=== PATIENT | female | born 1945 | race Caucasian/White ===

== ENCOUNTER 2017-03-02 00:29 | Emergency (ER) | payer MEDICARE, BC ==
[2017-03-02 00:39] VITALS: BP 134/48
[2017-03-02] MEDS ORDERED: Hyoscyamine 0.125 MG Tab.SL SL ONE (00:47)
[2017-03-02] MEDS ORDERED: Alum Hydrox/Mag Hydrox/Simeth 30 ML, Lidocaine 2% 15 ML PO ONE ×2 (00:47)
[2017-03-02] MEDS ORDERED: Aspirin 81 MG Tab.Chew PO ONE (00:47)
--- NOTE | 2017-03-02 00:52 | EDM.PDOC ---
ED HPI GENERAL MEDICAL PROBLEM - General Chief Complaint: Chest Pain Stated Complaint: CHEST PAIN/epigastric pain Time Seen by Provider: 03/02/17 00:36 Source of Information: Reports: Patient, Family (daughter) History Limitations: Reports: No Limitations - History of Present Illness INITIAL COMMENTS - FREE TEXT/NARRATIVE: 71-year-old female presents the ED with her daughter. She reports that she slept for about 2 hours but awoke around 10:45 last evening with severe pain in the epigastrium that radiates along the costal margin bilaterally. Does not seem to radiate into her back. No relief with Tums or burping or belching. She does have a history of gastroesophageal reflux disease and often gets acid reflux up into her throat. She's been well controlled since she is on pantoprazole. Took some water that did not seem to help help either. No true odynophagia. History of severe coronary disease having had triple bypass and 2 stents placed in the past. Last stents were placed in 2008. She remains on Plavix. She did not take any nitroglycerin tabs as she couldn't find them at home. She's never required it. She's had previous cholecystectomy and total bowel hysterectomy with retention of one of her ovaries. Onset: Sudden Onset Date: 03/01/17 Onset Time: 22:45 Duration: Hour(s):, Constant Location: Reports: Chest (Lower retrosternal chest and epigastrium.) Quality: Reports: Ache, Burning, Pressure, Stabbing Severity: Moderate Improves with: Reports: None (Rates pain as 7 out of 10.) Worsens with: Reports: None Context: Denies: Activity, Exercise, Lifting, Sick Contact, Trauma, Other Associated Symptoms: Reports: Chest Pain, Nausea/Vomiting. Denies: No Other Symptoms, Confusion (Epigastric lower retrosternal chest pain), Cough, cough w sputum, Diaphoresis, Fever/Chills, Headaches, Loss of Appetite, Malaise, Rash, Seizure, Shortness of Breath, Syncope, Weakness (Mild nausea with no vomiting), Other Treatments MEDICAL TRANSCRIPTION EDITOR: Reports: Aspirin (She took 2 baby aspirins at home.) Chest Pain Score (Numeric/FACES): 7 - Related Data Allergies Allergy/AdvReac Type Severity Reaction Status Date / Time adhesive Allergy Rash Verified 03/02/17 00:40 tizanidine HCl Allergy Cannot Verified 03/02/17 00:40 [From Zanaflex] Remember aspirin AdvReac Cough Verified 03/02/17 00:40 Home Meds: Home Meds Albuterol [Proventil HFA] 2 puff INH BID PRN 08/01/15 [History] Calcium Carb/Magnesium Oxid/D3 [Calcium Magnesium + D] 1 tab PO DAILY 08/01/15 [ History] Clopidogrel [Plavix] 75 mg PO DAILY 08/01/15 [History] FLUoxetine [PROzac] 40 mg PO DAILY 08/01/15 [History] Fluticasone Propionate [Flonase] 1 spray NASBOTH DAILY 08/01/15 [History] Formoterol/Mometasone [Dulera 100 MCG/5 MCG] 1 puff IH DAILY 08/01/15 [History] Furosemide [Lasix] 40 mg PO DAILY 08/01/15 [History] Gabapentin [Neurontin] 100 mg PO TID 08/01/15 [History] Levothyroxine Sodium [Synthroid] 25 mcg PO DAILY 08/01/15 [History] Multivitamin [Daily Multiple Vitamin] 1 tab PO DAILY 08/01/15 [History] Nitroglycerin [Nitrostat] 0.4 mg SL Q5M PRN 08/01/15 [History] Restful Legs 4 tab SL DAILY 08/01/15 [History] Rosuvastatin [Crestor] 40 mg PO BEDTIME 08/01/15 [History] Atenolol [Tenormin] 12.5 mg PO DAILY 03/02/17 [History] Pantoprazole Sodium [Protonix] 40 mg PO BID 03/02/17 [History] Solifenacin Succinate [Vesicare] 10 mg PO DAILY 03/02/17 [History] Past Medical History Other HEENT History: glasses, sinusitis Cardiovascular History: Reports: Bypass (Triple coronary bypass in 2005.), CAD, Heart Failure, High Cholesterol, Hypertension, ME (Mild congestive failure), Stents (Has [address] last placement was in 2008.) Other Cardiovascular History: diaphoresis, diastolic dysfunction, popliteal artery thrombosis and stent 2009, R leg lymphedema Respiratory History: Reports: Asthma, Bronchitis, Recurrent, COPD Gastrointestinal History: Reports: Gastritis, GERD Other Gastrointestinal History: stomach ulcers, laparotomy Genitourinary History: Reports: UTI, Recurrent, Other (See Below) Other Genitourinary History: urinary incontinence--urge component Other OB/BYN History: fibrocystic breast disease, breast lumpectomy Musculoskeletal History: Reports: Osteoarthritis, Osteoporosis Other Musculoskeletal History: osteoarthritis R knee Neurological History: Reports: Vertigo Psychiatric History: Reports: Depression Endocrine/Metabolic History: Reports: Hypothyroidism, Obesity/BMI 30+ Oncologic (Cancer) History: Reports: Basal Cell Carcinoma Other Dermatologic History: spot on forearm recently biopsied - Past Surgical History Cardiovascular Surgical History: Reports: Coronary Artery Bypass, Coronary Artery Stent Musculoskeletal Surgical History: Reports: Joint Replacement Social & Family History - Tobacco Use Smoking Status *Q: Never Smoker Second Hand Smoke Exposure: No - Alcohol Use Days Per Week of Alcohol Use: 1 (occasionally 2 times month) - Recreational Drug Use Recreational Drug Use: No Drug Use in Last 12 Months: No - Living Situation & Occupation Living situation: Reports: , Alone Occupation: Retired ED ROS GENERAL - Review of Systems Review Of Systems: See Below Constitutional: Reports: No Symptoms HEENT: Reports: Glasses Respiratory: Reports: Shortness of Breath. Denies: Wheezing, Pleuritic Chest Pain (On exertion), Cough, Sputum, Hemoptysis Cardiovascular: Reports: Chest Pain (See history of present illness), Blood Pressure Problem, Dyspnea on Exertion (Sometimes.), Lightheadedness. Denies: Claudication, Orthopnea (Controlled with medication) Endocrine: Reports: Fatigue GI/Abdominal: Reports: Abdominal Pain, Constipation (Occasional problems with constipation) : Reports: Frequency (Urge and stress component), Incontinence Musculoskeletal: Reports: Back Pain, Other (Chronic lower extremity pain and neuropathy.) Skin: Reports: No Symptoms Neurological: Reports: Paresthesia (Left leg) Psychiatric: Reports: No Symptoms Hematologic/Lymphatic: Reports: No Symptoms Immunologic: Reports: No Symptoms ED EXAM, GENERAL - Physical Exam Exam: See Below Exam Limited By: No Limitations General Appearance: Alert, WD/WN, No Apparent Distress Eye Exam: Bilateral Eye: Normal Inspection Throat/Mouth: Normal Inspection, Normal Lips, Normal Teeth, Normal Oropharynx Head: Atraumatic, Normocephalic Neck: Normal Inspection, Supple, Non-Tender, Full Range of Motion. No: Lymphadenopathy (L), Lymphadenopathy (R) Respiratory/Chest: No Respiratory Distress, Lungs Clear, Normal Breath Sounds, No Accessory Muscle Use, Respiratory Distress (Mild tachypnea at rest.) Cardiovascular: Regular Rate, Rhythm, No Edema, No Gallop, No Murmur, No Rub. No: Normal Peripheral Pulses Peripheral Pulses: 1+: Posterior Tibial (L), Posterior Tibial (R), Dorsalis Pedis (L), Dorsalis Pedis (R) GI/Abdominal: Normal Bowel Sounds, Soft, Non-Tender, No Organomegaly, Other ( She has a palpable lipoma just below the costal margin on the left side there is 3 cm in length and 2 cm in width. It is mobile and I can pick it up.) Extremities: Normal Inspection, Normal Range of Motion, Non-Tender, No Pedal Edema Neurological: Alert, Oriented, CN II-XII Intact, Normal Cognition, Normal Gait, Normal Reflexes, No Motor/Sensory Deficits Psychiatric: Normal Affect, Normal Mood Skin Exam: Warm, Dry, Intact, Normal Color, No Rash EKG INTERPRETATION EKG Date: 03/02/17 Time: 12:35 Rhythm: NSR Rate (Beats/Min): 76 [place]: Normal P-Wave: Present QRS: Other (Incomplete left bundle branch block left ventricular hypertrophy pattern) ST-T: Other (T-wave inversion in leads 1 and aVL cannot rule out ischemia in the lateral wall.) QT: Prolonged (Mildly prolonged.) Course - Vital Signs Last Recorded V/S: Last Vital Signs Temp 36.1 C 03/02/17 00:33 Pulse 72 03/02/17 00:33 Resp 20 03/02/17 00:33 BP 134/48 L 03/02/17 00:33 Pulse Ox 100 03/02/17 00:33 - Orders/Labs/Meds Orders: Active Orders 24 hr Category Date Time Status EKG Documentation Completion [RC] STAT Care 03/02/17 00:49 Active EKG Documentation Completion [RC] STAT Care 03/02/17 02:25 Active Abdomen 1V Flat [CR] Stat Exams 03/02/17 00:50 Taken Chest 1V Frontal [CR] Stat Exams 03/02/17 00:48 Taken CBC W/O DIFF,HEMOGRAM [HEME] MOTH@0700 Lab 03/04/17 07:00 Ordered CBC W/O DIFF,HEMOGRAM [HEME] MOTH@0700 Lab 03/07/17 07:00 Ordered CBC W/O DIFF,HEMOGRAM [HEME] MOTH@0700 Lab 03/11/17 07:00 Ordered CBC W/O DIFF,HEMOGRAM [HEME] MOTH@0700 Lab 03/14/17 07:00 Ordered CBC W/O DIFF,HEMOGRAM [HEME] MOTH@0700 Lab 03/18/17 07:00 Ordered CBC W/O DIFF,HEMOGRAM [HEME] MOTH@0700 Lab 03/21/17 07:00 Ordered Nitroglycerin/D5W [Nitroglycerin 25 MG/D5W 250 ML] Med 03/02/17 01:45 Active 25 mg in 250 ml IV TITRATE Sodium Chloride 0.9% [Normal Saline] 1,000 ml Med 03/02/17 01:00 Active IV ASDIRECTED Medication Orders Sodium Chloride (Normal Saline) 1,000 mls @ 100 mls/hr IV ASDIRECTED XAVIER Last Admin: 03/02/17 00:57 Dose: 100 mls/hr Nitroglycerin/Dextrose (Nitroglycerin 25 Mg/D5w 250 Ml) 25 mg in 250 mls @ 6 mls/hr IV TITRATE XAVIER PRN Reason: 10 MCG/MIN Last Admin: 03/02/17 01:48 Dose: 10 mcg/min, 6 mls/hr Labs: Laboratory Tests 03/02/17 03/02/17 03/02/17 Range/Units 00:41 00:41 00:41 WBC 9.34 (3.98-10.04) K/mm3 RBC 4.54 (3.98-5.22) M/mm3 Hgb 13.2 (11.2-15.7) gm/L Hct 39.7 (34.1-44.9) % MCV 87.4 (79.4-94.8) fl MCH 29.1 (25.6-32.2) pg MCHC 33.2 (32.2-35.5) g/dl RDW Std Deviation 43.3 (36.4-46.3) fL Plt Count 343 (182-369) K/mm3 MPV 10.3 (9.4-12.3) fl Neutrophils % (Manual) 76 H (40-60) % Band Neutrophils % 0 (0-10) % Lymphocytes % (Manual) 15 L (20-40) % Atypical Lymphs % 1 % Monocytes % (Manual) 3 (2-10) % Eosinophils % (Manual) 5 (0.7-5.8) % Basophils % (Manual) 0 L (0.1-1.2) Toxic Granulation 1+ slight Platelet Estimate Adequate Plt Morphology Comment Normal Poikilocytosis 1+ slight Anisocytosis 1+ slight Microcytosis 1+ slight Macrocytosis 1+ slight Ovalocytes 1+ slight RBC Morph Comment Abnormal PT 10.1 (8.0-13.0) SECONDS INR 0.93 D-Dimer, Quantitative (0.19-0.59) mg/L Sodium 141 (136-145) mEq/L Potassium 4.7 (3.5-5.1) mEq/L Chloride 103 (98-107) mEq/L Carbon Dioxide 31 (21-32) mEq/L Anion Gap 11.7 (5-15) BUN 25 H (7-18) mg/dL Creatinine 1.2 H (0.55-1.02) mg/dL Est Cr Clr Drug Dosing 33.02 mL/min Estimated GFR (MDRD) 44 (>60) mL/min BUN/Creatinine Ratio 20.8 H (14-18) Glucose 108 (83-115) mg/dL Calcium 9.0 (8.5-10.1) mg/dL Total Bilirubin 0.5 (0.2-1.0) mg/dL AST 85 H (15-37) U/L ALT 47 (14-59) U/L Alkaline Phosphatase 103 (46-116) U/L CK-MB (CK-2) 0.6 (0-3.6) ng/ml Troponin I 0.155 H* (0.00-0.056) ng/mL C-Reactive Protein 0.8 (<1.0) mg/dL B-Natriuretic Peptide (0-100) pg/mL Total Protein 7.8 (6.4-8.2) g/dl Albumin 3.9 (3.4-5.0) g/dl Globulin 3.9 gm/dL Albumin/Globulin Ratio 1.0 (1-2) Amylase 56 (20-160) U/L 03/02/17 03/02/17 03/02/17 Range/Units 00:41 01:59 02:23 WBC (3.98-10.04) K/mm3 RBC (3.98-5.22) M/mm3 Hgb (11.2-15.7) gm/L Hct (34.1-44.9) % MCV (79.4-94.8) fl MCH (25.6-32.2) pg MCHC (32.2-35.5) g/dl RDW Std Deviation (36.4-46.3) fL Plt Count (182-369) K/mm3 MPV (9.4-12.3) fl Neutrophils % (Manual) (40-60) % Band Neutrophils % (0-10) % Lymphocytes % (Manual) (20-40) % Atypical Lymphs % % Monocytes % (Manual) (2-10) % Eosinophils % (Manual) (0.7-5.8) % Basophils % (Manual) (0.1-1.2) Toxic Granulation Platelet Estimate Plt Morphology Comment Poikilocytosis Anisocytosis Microcytosis Macrocytosis Ovalocytes RBC Morph Comment PT (8.0-13.0) SECONDS INR D-Dimer, Quantitative 1.28 H (0.19-0.59) mg/L Sodium (136-145) mEq/L Potassium (3.5-5.1) mEq/L Chloride (98-107) mEq/L Carbon Dioxide (21-32) mEq/L Anion Gap (5-15) BUN (7-18) mg/dL Creatinine (0.55-1.02) mg/dL Est Cr Clr Drug Dosing mL/min Estimated GFR (MDRD) (>60) mL/min BUN/Creatinine Ratio (14-18) Glucose (83-115) mg/dL Calcium (8.5-10.1) mg/dL Total Bilirubin (0.2-1.0) mg/dL AST (15-37) U/L ALT (14-59) U/L Alkaline Phosphatase (46-116) U/L CK-MB (CK-2) 0.5 (0-3.6) ng/ml Troponin I 0.158 H* (0.00-0.056) ng/mL C-Reactive Protein (<1.0) mg/dL B-Natriuretic Peptide 183 H (0-100) pg/mL Total Protein (6.4-8.2) g/dl Albumin (3.4-5.0) g/dl Globulin gm/dL Albumin/Globulin Ratio (1-2) Amylase (20-160) U/L Meds: Medications Generic Name Dose Route Start Last Admin Trade Name Freq PRN Reason Stop Dose Admin Sodium Chloride 1,000 mls @ 100 mls/hr 03/02/17 01:00 03/02/17 00:57 Normal Saline IV 100 mls/hr ASDIRECTED XAVIER Administration Nitroglycerin/Dextrose 25 mg in 250 mls @ 6 mls/hr 03/02/17 01:45 03/02/17 01 :48 Nitroglycerin 25 Mg/D5w 250 Ml IV 10 mcg/min TITRATE XAVIER 6 mls/hr 10 MCG/MIN Administration Discontinued Medications Generic Name Dose Route Start Last Admin Trade Name Freq PRN Reason Stop Dose Admin Aspirin 162 mg 03/02/17 00:47 03/02/17 00:55 Aspirin PO 03/02/17 00:48 162 mg ONETIME ONE Administration Al Hydroxide/Mg Hydroxide 30 0 ml 03/02/17 00:47 03/02/17 00:52 ml/ Lidocaine HCl 15 ml PO 03/02/17 00:48 45 ml ONETIME ONE Administration Enoxaparin Sodium 95 mg 03/02/17 01:46 03/02/17 01:54 Lovenox SUBCUT 03/02/17 01:47 95 mg ONETIME ONE Administration Hydromorphone HCl 0.5 mg 03/02/17 02:18 03/02/17 02:30 Dilaudid IVPUSH 03/02/17 02:19 0.5 mg ONETIME ONE Administration Hydromorphone HCl Confirm 03/02/17 02:25 03/02/17 02:33 Dilaudid Administered 03/02/17 02:26 Not Given Dose 0.5 mg .ROUTE .STK-MED ONE Hyoscyamine 0.125 mg 03/02/17 00:47 03/02/17 00:51 Hyomax-Sl SL 03/02/17 00:48 0.125 mg ONETIME ONE Administration Ondansetron HCl 4 mg 03/02/17 02:18 03/02/17 02:27 Zofran IVPUSH 03/02/17 02:19 4 mg ONETIME ONE Administration - Radiology Interpretation Free Text/Narrative:: 31-year-old female attends the ED after waking from sleep with severe epigastric pressure discomfort at about 10:45 last night. She therefore arise 2 hours since pain started. She has a strong history of coronary disease with triple bypass and 2 stents placed. She has stable disease as far as we can ascertain with regular checkups with cardiology and yearly stress test which she has passed. She remains on Plavix and aspirin daily. Eating on examination over seems to be epigastric or GI in origin. She has taken 2 aspirins at home and I will give her 2 further aspirins here chewed. I will give her Levsin 0.125 mg sublingual and a GI cocktail and see how she does. Routine labs including cardiac markers will be drawn as well as an amylase. She's had previous cholecystectomy. I suspect she has a hiatal hernia that is causing her current pain as the pain radiates along the costal margin bilaterally. - Re-Assessments/Exams Free Text/Narrative Re-Assessment/Exam: 03/02/17 01:25: Chest x-ray reveals no abnormalities cardiac silhouette is quite small. Is a air in the left upper: Pushing up on the left hemidiaphragm which may be causing some of her epigastric pain. No definitive hiatal hernia is evident. She reports marked improvement in the pain after the Levsin sublingual and the GI cocktail. 03/02/17 01:38 Lab called over and the serum troponin is elevated at 0.155. Right own of any other labs to correlate with this. However this is of concern that current pain that she was experiencing in the pit of her stomach was in fact cardiac related. She will be started on low dose nitroglycerin at 5 mcg/m as her blood pressure is 114/46. Currently she reports that she still has minor discomfort in the pit of her stomach. Grades it as a 1 out of 10 or barely there. 03/02/17 01:47 labs reveal a normal white count at 9.34 hemoglobin 13.2 hematocrit of 39.7 platelets 343,000. Coags are normal. Sodium 141 potassium 4.7. Cord 103 bicarbonate 31. I.e. she is a CO2 retainer. Anion gap is 11.7. D1 is 25. Creatinine 1.2 with an EGFR 44. AST mildly elevated 85 ELT is mildly elevated at 47 BNP is 183 CK-MB fraction is 0.6 serum troponin is 0.155 . I will proceed with giving her Lovenox 95 mg subcutaneous abdominal wall. Note she is on Plavix and aspirin. 03/02/17 02:04 pain is coming back in the epigastrium and right upper anterior chest. Blood pressure has now come up to 137/30. Nitro drip will be increased to 10 mcg/min. I will make arrangements to send her to [facility] where she has received cardiac care in the past. Currently she'll be labeled as a non-STEMI. 03/02/17 02:43 I spoke with on-call first breaker feeder Dr.Alban Rhodes and hospitalist Dr Gant. They have accepted care at [facility] in [place] where she has received all of her cardiac care in the past. He be transported to that institution per ground ambulance. The second ECG done when she complained of more chest pain is unchanged from the first. I will have the lab draw a second set of enzymes --CK-MB and troponin. Coincidentally her d- dimer did come back elevated at 1.28 suggestive of clotting and increased fibrinogen breakdown product. Chest pain is much improved after receiving Dilaudid 0.5 mg IV she also received Zofran 4 mg IV.. At the time of discharge her pain was 1 out of 10. 03/02/17 03:10 Second set of cardiac markers are essentially unchanged from the first. CK-MB fraction 0.5 and troponin was 0.158. Departure - Departure Time of Disposition: 02:45 Disposition: DC/Tfer to Acute Hospital 02 Reason for Transfer *Q: Other Condition: Fair Clinical Impression: Acute coronary syndrome, Elevated troponin I level Referrals: Delaney Galvez DO [Primary Care Provider] - Forms: ED Department Discharge Additional Instructions: Patient transferred to [facility] in [place] for cardiology consultation and management due to elevated troponin at 0.155 after complaining of retrosternal epigastric chest pain for 2 hours. - My Orders Last 24 Hours: My Active Orders 03/02/17 00:48 Chest 1V Frontal [CR] Stat 03/02/17 00:49 EKG Documentation Completion [RC] STAT 03/02/17 00:50 Abdomen 1V Flat [CR] Stat 03/02/17 01:00 Sodium Chloride 0.9% [Normal Saline] 1,000 ml IV ASDIRECTED 03/02/17 01:45 Nitroglycerin/D5W [Nitroglycerin 25 MG/D5W 250 ML] 25 mg in 250 ml IV TITRATE 03/02/17 02:25 EKG Documentation Completion [RC] STAT 03/04/17 07:00 CBC W/O DIFF,HEMOGRAM [HEME] MOTH@69903/07/17 07:00 CBC W/O DIFF,HEMOGRAM [HEME] MOTH@69903/11/17 07:00 CBC W/O DIFF,HEMOGRAM [HEME] MOTH@69903/14/17 07:00 CBC W/O DIFF,HEMOGRAM [HEME] MOTH@69903/18/17 07:00 CBC W/O DIFF,HEMOGRAM [HEME] MOTH@69903/21/17 07:00 CBC W/O DIFF,HEMOGRAM [HEME] MOTH@699 - Assessment/Plan Last 24 Hours: My Active Orders 03/02/17 00:48 Chest 1V Frontal [CR] Stat 03/02/17 00:49 EKG Documentation Completion [RC] STAT 03/02/17 00:50 Abdomen 1V Flat [CR] Stat 03/02/17 01:00 Sodium Chloride 0.9% [Normal Saline] 1,000 ml IV ASDIRECTED 03/02/17 01:45 Nitroglycerin/D5W [Nitroglycerin 25 MG/D5W 250 ML] 25 mg in 250 ml IV TITRATE 03/02/17 02:25 EKG Documentation Completion [RC] STAT 03/04/17 07:00 CBC W/O DIFF,HEMOGRAM [HEME] MOTH@69903/07/17 07:00 CBC W/O DIFF,HEMOGRAM [HEME] MOTH@69903/11/17 07:00 CBC W/O DIFF,HEMOGRAM [HEME] MOTH@69903/14/17 07:00 CBC W/O DIFF,HEMOGRAM [HEME] MOTH@69903/18/17 07:00 CBC W/O DIFF,HEMOGRAM [HEME] MOTH@69903/21/17 07:00 CBC W/O DIFF,HEMOGRAM [HEME] MOTH@699
[2017-03-02] MEDS ORDERED: Sodium Chloride 0.9% 1,000 ML IV SCH (01:00)
[2017-03-02] MEDS ORDERED: Nitroglycerin/D5W 25 MG/250 ML BOTTLE IV SCH (01:45)
[2017-03-02] MEDS ORDERED: Enoxaparin 100 MG/1 ML Syringe SUBCUT ONE (01:46)
[2017-03-02] MEDS ORDERED: Ondansetron 4 MG/2 ML SDV IVPUSH ONE (02:18)
[2017-03-02] MEDS ORDERED: HYDROmorphone 0.5 MG/0.5 ML Syringe IVPUSH ONE (02:18)
[2017-03-02] MEDS ORDERED: HYDROmorphone 0.5 MG/0.5 ML Syringe ONE (02:25)
--- NOTE | 2017-03-03 11:22 | CR ---
Abdomen: Supine view of the abdomen was obtained. Comparison: Previous abdominal x-ray dated 03/22/12. Mild degenerative change is noted within the spine. Previous lower lumbar spine surgery is seen. Surgical clips are noted from prior cholecystectomy. Bowel gas pattern appears normal. Single surgical clips are noted within the left side of the pelvis. Impression: 1. Incidental findings as noted above. Nothing acute is appreciated on supine abdominal x-ray. Diagnostic code #2
--- NOTE | 2017-03-03 11:22 | CR ---
Chest: Frontal view of the chest was obtained. Comparison: Previous chest x-ray of 03/25/13. Heart size is normal. Mild tortuosity of the thoracic aorta is seen. Lungs are clear with no acute infiltrates. Bony structures are grossly intact. Impression: 1. Previous CABG. 2. Nothing acute is identified on frontal chest x-ray. Diagnostic code #2
== END 2017-03-02 02:46 ==
LOC: JD.ED 00:29
DX: I24.9 Acute ischemic heart disease, unspecified (principal); R79.89 Other specified abnormal findings of blood chemistry; I25.10 Atherosclerotic heart disease of native coronary artery without angina pectoris; I25.2 Old myocardial infarction; E78.00 Pure hypercholesterolemia, unspecified; I50.9 Heart failure, unspecified; I11.0 Hypertensive heart disease with heart failure; J45.909 Unspecified asthma, uncomplicated; J44.9 Chronic obstructive pulmonary disease, unspecified; K21.9 Gastro-esophageal reflux disease without esophagitis; F32.9 Major depressive disorder, single episode, unspecified; E03.9 Hypothyroidism, unspecified; E66.9 Obesity, unspecified; Z91.048 Other nonmedicinal substance allergy status; Z88.8 Allergy status to other drugs, medicaments and biological substances; Z79.899 Other long term (current) drug therapy; Z95.1 Presence of aortocoronary bypass graft; Z87.440 Personal history of urinary (tract) infections
CPT/HCPCS: 36415; 71010; 74000; 80053; 82150; 82553; 83880; 84484; 85025; 85379; 85610; 86140; 93005; 96361; 96365; 96372; 96375; 99285; A9270; J1170; J1650; J2405; J7040

== ENCOUNTER 2019-06-27 14:11 | Emergency (ER) | payer MEDICARE, BC ==
--- NOTE | 2019-06-27 14:21 | EDM.PDOC ---
ED HPI GENERAL MEDICAL PROBLEM - General Chief Complaint: Respiratory Problem Stated Complaint: COUGH Time Seen by Provider: 06/27/19 14:19 - History of Present Illness INITIAL COMMENTS - FREE TEXT/NARRATIVE: 73-year-old female presents emergency room with a cough. This cough is been going on for several days she's been exposed to some grandchildren with bronchitis that been started on antibiotics. The patient has a history of asthma but what bothers her the most that she spends a lot of time with her son who has end-stage liver disease and is immunocompromised and is worried about spreading illness the. The patient is using her rescue inhaler a little more frequently but is otherwise doing okay she complains of no shortness of breath she's had a few chills no fevers. Her cough is for the most part nonproductive but in the morning she brings up a little bit of off-colored sputum. - Related Data Allergies Allergy/AdvReac Type Severity Reaction Status Date / Time adhesive Allergy Rash Verified 06/27/19 14:18 aspirin AdvReac Cough Verified 06/27/19 14:18 ezetimibe AdvReac Shaking Verified 06/27/19 14:18 tizanidine HCl AdvReac Other Verified 06/27/19 14:18 [From Zajohnny] Home Meds: Home Meds Albuterol [Proventil HFA] 2 puff INH BID PRN 08/01/15 [History] Calcium Carb/Magnesium Oxid/D3 [Calcium Magnesium + D] 1 tab PO DAILY 08/01/15 [ History] Clopidogrel [Plavix] 75 mg PO DAILY 08/01/15 [History] FLUoxetine [PROzac] 40 mg PO DAILY 08/01/15 [History] Fluticasone Propionate [Flonase] 2 spray NASBOTH DAILY 08/01/15 [History] Furosemide [Lasix] 40 mg PO DAILY 08/01/15 [History] Levothyroxine Sodium [Synthroid] 25 mcg PO DAILY 08/01/15 [History] Nitroglycerin [Nitrostat] 0.4 mg SL Q5M PRN 08/01/15 [History] Rosuvastatin [Crestor] 40 mg PO BEDTIME 08/01/15 [History] Atenolol [Tenormin] 12.5 mg PO DAILY 03/02/17 [History] Pantoprazole Sodium [Protonix] 40 mg PO DAILY 03/02/17 [History] Solifenacin Succinate [Vesicare] 10 mg PO DAILY 03/02/17 [History] Acetaminophen [Tylenol] 650 mg PO Q4H PRN 05/27/18 [History] Cholecalciferol (Vitamin D3) [Vitamin D3] 5,000 unit PO DAILY 05/27/18 [History] L.acidoph,Paracasei, B.lactis [Probiotic] 1 each PO DAILY 05/27/18 [History] Mometasone/Formoterol [Dulera 200-5 MCG] 2 puff INH BID 05/27/18 [History] raNITIdine HCl [Zantac] 150 mg PO DAILY 05/27/18 [History] Albuterol Sulfate [Albuterol Sulfate Hfa] 8.5 gm IH ASDIRECTED #1 hfa.aer.ad 05/07 [Rx] Doxycycline Hyclate 100 mg PO Q12H #14 tablet 06/27/19 [Rx] predniSONE [Prednisone] 40 mg PO Q24H #10 tablet 06/27/19 [Rx] Past Medical History Other HEENT History: glasses, sinusitis Cardiovascular History: Reports: Bypass (Triple coronary bypass in 2005.), CAD, Heart Failure, High Cholesterol, Hypertension, [place] (Mild congestive failure), Stents (Has [address] last placement was in 2008.) Other Cardiovascular History: diaphoresis, diastolic dysfunction, popliteal artery thrombosis and stent 2009, R leg lymphedema Respiratory History: Reports: Asthma, Bronchitis, Recurrent, COPD Gastrointestinal History: Reports: Gastritis, GERD Other Gastrointestinal History: stomach ulcers, laparotomy Genitourinary History: Reports: UTI, Recurrent, Other (See Below) Other Genitourinary History: urinary incontinence--urge component 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 History: fibrocystic breast disease, breast lumpectomy Musculoskeletal History: Reports: Osteoarthritis, Osteoporosis Other Musculoskeletal History: osteoarthritis R knee Neurological History: Reports: Vertigo Psychiatric History: Reports: Depression Endocrine/Metabolic History: Reports: Hypothyroidism, Obesity/BMI 30+ Oncologic (Cancer) History: Reports: Basal Cell Carcinoma Other Dermatologic History: spot on forearm recently biopsied - Infectious Disease History Infectious Disease History: Reports: Chicken Pox, Measles, Mumps, Rubella - Past Surgical History Cardiovascular Surgical History: Reports: Coronary Artery Bypass, Coronary Artery Stent Musculoskeletal Surgical History: Reports: Joint Replacement Social & Family History - Family History Family Medical History: Noncontributory - Caffeine Use Caffeine Use: Reports: Coffee Other Caffeine Use: 3-4 cups a day - Living Situation & Occupation Living situation: Reports: , Alone Occupation: Retired ED ROS GENERAL - Review of Systems Review Of Systems: See Below Constitutional: Reports: Chills. Denies: Fever, Night Sweats, Diaphoresis HEENT: Reports: No Symptoms Respiratory: Reports: Cough. Denies: No Symptoms, Shortness of Breath, Wheezing , Pleuritic Chest Pain, Hemoptysis Cardiovascular: Reports: No Symptoms GI/Abdominal: Reports: No Symptoms : Reports: No Symptoms Neurological: Reports: No Symptoms ED EXAM, GENERAL - Physical Exam Exam: See Below Exam Limited By: No Limitations General Appearance: Alert, No Apparent Distress Eye Exam: Bilateral Eye: Normal Inspection Ears: Normal External Exam, Normal Canal, Hearing Grossly Normal, Normal TMs Nose: Normal Inspection, Normal Mucosa, No Blood Throat/Mouth: Normal Inspection, Normal Lips, Normal Teeth, Normal Gums, Normal Oropharynx, Normal Voice, No Airway Compromise Head: Atraumatic, Normocephalic Neck: Normal Inspection, Supple, Non-Tender, Full Range of Motion. No: Lymphadenopathy (L), Lymphadenopathy (R) Respiratory/Chest: No Respiratory Distress, Lungs Clear, Normal Breath Sounds Cardiovascular: Regular Rate, Rhythm, No Edema, Other (He has a 1 to 2/6 systolic murmur heard best along the left lower sternal border. This is not new she says she's had it for a long time) GI/Abdominal: Normal Bowel Sounds, Soft, Non-Tender Back Exam: Normal Inspection. No: CVA Tenderness (L), CVA Tenderness (R) Extremities: Normal Inspection, Non-Tender, No Pedal Edema Course - Vital Signs Last Recorded V/S: Last Vital Signs Temp 36.4 C 06/27/19 14:18 Pulse 83 06/27/19 14:18 Resp 18 06/27/19 14:18 BP 107/74 06/27/19 14:18 Pulse Ox 100 06/27/19 14:18 - Orders/Labs/Meds Orders: Active Orders 24 hr Category Date Time Status Chest 2V [CR] Stat Exams 06/27/19 14:33 Taken Meds: Medications Discontinued Medications Generic Name Dose Route Start Last Admin Trade Name Freq PRDarby Reason Stop Dose Admin Prednisone 60 mg 06/27/19 14:34 06/27/19 14:45 Prednisone PO 06/27/19 14:35 60 mg ONETIME ONE Administration - Re-Assessments/Exams Free Text/Narrative Re-Assessment/Exam: 06/27/19 15:21 Chest x-ray is unremarkable the patient does have immunocompromised son at home with end-stage kidney failure given that will place the patient on doxycycline 100 mg twice a day we'll discharge her with prednisone 40 mg daily for 5 days with her history of asthma will refill her albuterol she's used 2 puffs every 4 hours while awake until doing better. Departure - Departure Time of Disposition: 15:28 Disposition: Home, Self-Care 01 Clinical Impression: Bronchitis, Asthma - Discharge Information Prescriptions: Albuterol Sulfate [Albuterol Sulfate Hfa] 8.5 gm IH ASDIRECTED #1 hfa.aer.ad Doxycycline Hyclate 100 mg PO Q12H #14 tablet predniSONE [Prednisone] 40 mg PO Q24H #10 tablet Instructions: Asthma, Adult, Acute Bronchitis, Adult Referrals: Geri Vora MD [Primary Care Provider] - Forms: ED Department Discharge Additional Instructions: Return to the emergency room with any questions problems or worsening symptoms. Follow-up with your regular physician at the end of this next week if needed. Use the albuterol 2 puffs every 4 hours while awake until you cough is gone and then resume normal as needed use of this. Take the prednisone 2 pills every morning until all gone. The doxycycline is a antibiotic. Take it twice daily until all gone. Stop your calcium supplement while taking this. - My Orders Last 24 Hours: My Active Orders 06/27/19 14:33 Chest 2V [CR] Stat - Assessment/Plan Last 24 Hours: My Active Orders 06/27/19 14:33 Chest 2V [CR] Stat
[2019-06-27 14:22] VITALS: BP 107/74; PULSE 83
[2019-06-27] MEDS ORDERED: predniSONE 20 MG Tab PO ONE (14:34)
--- NOTE | 2019-06-28 16:01 | CR ---
Chest: PA and lateral views of the chest were obtained. Comparison: Prior chest x-ray of 05/27/18. Heart size is normal. Tortuous thoracic aorta is seen. No acute parenchymal change is seen. Lungs are slightly hyperinflated suggesting emphysematous change. Previous sternotomy for CABG is noted. Small stent is seen overlying the left upper lung. Impression: 1. Emphysematous change. 2. Nothing acute is appreciated on two-view chest x-ray. Diagnostic code #2
== END 2019-06-27 15:44 | disposition home or self-care (01) ==
LOC: JD.ED 14:11
DX: J44.9 Chronic obstructive pulmonary disease, unspecified (principal); I25.2 Old myocardial infarction; I11.0 Hypertensive heart disease with heart failure; I50.9 Heart failure, unspecified; E11.9 Type 2 diabetes mellitus without complications; E66.9 Obesity, unspecified; E78.00 Pure hypercholesterolemia, unspecified; E03.9 Hypothyroidism, unspecified; K21.9 Gastro-esophageal reflux disease without esophagitis; Z79.01 Long term (current) use of anticoagulants; Z79.02 Long term (current) use of antithrombotics/antiplatelets; Z79.51 Long term (current) use of inhaled steroids; Z79.899 Other long term (current) drug therapy; Z88.6 Allergy status to analgesic agent; Z88.8 Allergy status to other drugs, medicaments and biological substances; Z91.048 Other nonmedicinal substance allergy status; Z95.5 Presence of coronary angioplasty implant and graft; Z68.35 Body mass index [BMI] 35.0-35.9, adult
CPT/HCPCS: 71046; 99283; A9270

== ENCOUNTER → 2021-06-05 | Day surgery (SDC) | payer MEDICARE, BC ==
--- NOTE | 2021-06-01 13:50 | PCM.PREANE ---
Preanesthetic Assessment - Procedure Proposed Procedure: Colonoscopy - Anesthesia/Transfusion/Family Hx Anesthesia History: Prior Anesthesia Reaction Type of Anesthesia Reaction: Excessive Somnolence, Excessive Nausea/Vomiting (PONV) Family History of Anesthesia Reaction: No Transfusion History: Prior Transfusion Without Reaction Intubation History: Unknown - Review of Systems General: No Symptoms (Morbid obesity) Pulmonary: No Symptoms (COPD, TERRELL/CPAP: At night and not been using lately due to mouth sores. Last used albuterol inhaler this am. ETOH: rarely.) Cardiovascular: No Symptoms (CAD, CHF, HTN, Elevated cholesterol, on plavix with 2 stents placed in 2019, CABG in 2008.), Dyspnea on Exertion (chronic), Edema (History of: Lymphedema in right lower leg) Gastrointestinal: No Symptoms (History of pancreatitis, GERD-controlled), Constipation Neurological: No Symptoms (Mild cognitive impairment noted.), Tingling (bilateral fingers on occasion.) Other: Reports: None (Last plavix dose: 05/30/2021), Easy Bruising, Liver Problems (History of elevated liver function tests.), Thyroid Problems (hypothyroid), Depression - Physical Assessment NPO Status Date: 06/04/21 NPO Status Time: 22:00 Vital Signs: HR: 71 Sat: 100% Temp: 98.2 B/P: 137/48 Resp: 16 Height: 1.6 m Weight: 91 kg ASA Class: 3 Mental Status: Alert & Oriented x3 Airway Class: Mallampati = 2 Dentition: Reports: Normal Dentition (front left tooth has been worked on but solid.), Caries Thyro-Mental Finger Breadths: 3 Mouth Opening Finger Breadths: 3 ROM/Head Extension: Full Lungs: Clear to Auscultation, Normal Respiratory Effort Cardiovascular: Regular Rate, Regular Rhythm, No Murmurs - Lab Values: All labs reviewed and noted and within acceptable ranges to proceed with scheduled procedure. - Imaging/EKG Impressions: EKG: SR rate=68, LAE, LVH Echocardiogram: EF: 55-60%, Grade II diastolic dysfunction, severely dilated left atrium 2019 Heart Catheterization: 2 stents placed 2008 CABG 2020: carotid doppler: 40-69% bilateral luminal stenosis - Allergies Allergies/Adverse Reactions: Allergies Allergy/AdvReac Type Severity Reaction Status Date / Time adhesive Allergy Rash Verified 06/05/21 08:27 aspirin AdvReac Cough Verified 06/05/21 08:27 ezetimibe AdvReac Shaking Verified 06/05/21 08:27 tizanidine HCl AdvReac Other Verified 06/05/21 08:27 [From Chaya] - Anesthesia Plan Pre-Op Medication Ordered: Beta Fidel Beta Fidel: Atenolol Med Last Dose Date: 06/05/21 Med Last Dose Time: 07:10 - Acknowledgements Anesthesia Type Planned: MAC Pt an Appropriate Candidate for the Planned Anesthesia: Yes Alternatives and Risks of Anesthesia Discussed w Pt/Guardian: Yes Pt/Guardian Understands and Agrees with Anesthesia Plan: Yes PreAnesthesia Questionnaire Other HEENT History: glasses, sinusitis Cardiovascular History: Reports: Bypass (Triple coronary bypass in 2005.), CAD, Heart Failure, High Cholesterol, Hypertension, [place] (Mild congestive failure), Stents (Has [address] last placement was in 2008.) Other Cardiovascular History: diaphoresis, diastolic dysfunction, popliteal artery thrombosis and stent 2009, R leg lymphedema Respiratory History: Reports: Asthma, Bronchitis, Recurrent, COPD Gastrointestinal History: Reports: Gastritis, GERD Other Gastrointestinal History: stomach ulcers, laparotomy Genitourinary History: Reports: UTI, Recurrent, Other (See Below) Other Genitourinary History: urinary incontinence--urge component Other OB/BYN History: fibrocystic breast disease, breast lumpectomy Musculoskeletal History: Reports: Osteoarthritis, Osteoporosis Other Musculoskeletal History: osteoarthritis R knee Neurological History: Reports: Vertigo Psychiatric History: Reports: Depression Endocrine/Metabolic History: Reports: Hypothyroidism, Obesity/BMI 30+ Oncologic (Cancer) History: Reports: Basal Cell Carcinoma Other Dermatologic History: spot on forearm recently biopsied - Infectious Disease History Infectious Disease History: Reports: Chicken Pox, Measles, Mumps, Rubella - Past Surgical History Cardiovascular Surgical History: Reports: Coronary Artery Bypass, Coronary Artery Stent Musculoskeletal Surgical History: Reports: Joint Replacement - HOME MEDS Home Medications: Home Meds Albuterol [Proventil HFA] 2 puff INH BID PRN 08/01/15 [History] Calcium Carb/Magnesium Oxid/D3 [Calcium Magnesium + D] 1 tab PO DAILY 08/01/15 [History] Clopidogrel [Plavix] 75 mg PO DAILY 08/01/15 [History] FLUoxetine [PROzac] 40 mg PO DAILY 08/01/15 [History] Furosemide [Lasix] 40 mg PO DAILY PRN 08/01/15 [History] Levothyroxine Sodium [Synthroid] 25 mcg PO DAILY 08/01/15 [History] Nitroglycerin [Nitrostat] 0.4 mg SL Q5M PRN 08/01/15 [History] Rosuvastatin [Crestor] 40 mg PO BEDTIME 08/01/15 [History] Pantoprazole Sodium [Protonix] 40 mg PO DAILY 03/02/17 [History] Solifenacin Succinate [Vesicare] 10 mg PO DAILY 03/02/17 [History] atenoloL [Tenormin] 12.5 mg PO DAILY 03/02/17 [History] Acetaminophen [Tylenol] 650 mg PO Q4H PRN 05/27/18 [History] Aspirin 81 mg PO DAILY 06/04/21 [History] Magnesium Hydroxide [Milk of Magnesia] 30 ml PO ASDIRECTED PRN 06/04/21 [History] Multivitamin 1 tab PO DAILY 06/04/21 [History] Ubidecarenone [Coq-10] 100 mg PO DAILY 06/04/21 [History] Vit A/Vit C/Vit E/Zinc/Copper [Eye Multivitamin Tablet] 1 tab PO DAILY 06/04/21 [History] polyethylene glycoL 3350 [MiraLAX] 1 dose PO DAILY PRN 06/04/21 [History] - CURRENT (IN HOUSE) MEDS Current Meds: Current Medications Lactated Ringer's (Ringers, Lactated) 1,000 mls @ 125 mls/hr IV ASDIRECTED XAVIER Lidocaine/Sodium Bicarbonate (Lidocaine 1%/Sod Bicarbonate In Ns 8.4% 1 Ml Syringe) 0.25 ml IDERM ONETIME PRN PRN Reason: Prior to IV Start Sodium Chloride (Sodium Chloride 0.9% 10 Ml Syringe) 10 ml FLUSH ASDIRECTED PRN PRN Reason: Keep Vein Open
[~2021-06-05] MED LIST: Lactated Ringers 1,000 ML IV SCH; Lidocaine 1%/Sod Bicarbonate in NS 8.4% 1 ML Syringe IDERM PRN; Propofol 200 MG/20 ML SDV ONE; Sodium Chloride 0.9% 10 ML Syringe FLUSH PRN; ePHEDrine 50 MG/ML SDV ONE; fentaNYL 100 MCG/2 ML SDV ONE
--- NOTE | 2021-06-05 10:43 | PCM48HPAN ---
Post Anesthesia Note - EVALUATION WITHIN 48HRS OF ANESTHETIC Vital Signs in Normal Range: Yes Patient Participated in Evaluation: Yes Respiratory Function Stable: Yes Airway Patent: Yes Cardiovascular Function Stable: Yes Hydration Status Stable: Yes Pain Control Satisfactory: Yes Nausea and Vomiting Control Satisfactory: Yes Mental Status Recovered: Yes Vital Signs: Last Vital Signs Temp 98.2 F 06/05/21 07:50 Pulse 71 06/05/21 07:50 Resp 16 06/05/21 07:50 BP 137/48 L 06/05/21 07:50 Pulse Ox 100 06/05/21 07:50 Vital signs at 1030: 135/50 97% 2 liters HR 74 RR 14 98.0
--- NOTE | 2021-06-05 11:49 | PROC ---
DATE OF OPERATION: 06/05/2021 SURGEON: Royce Pacheco MD PREOPERATIVE DIAGNOSIS: Constipation. POSTOPERATIVE DIAGNOSES: 1. Normal colon. 2. Posterior anal fissure and grade 2 internal hemorrhoids. OPERATION PERFORMED: Colonoscopy. ESTIMATED BLOOD LOSS: Minimal. ANESTHESIA: Monitored anesthesia care. COMPLICATIONS: None. INDICATION AND CONSENT: Ms. Pereyra is a 75-year-old female who has been having constipation the last 3 to 4 months. This is new for her. Therefore, she has tried a stool softener and laxatives, which did not seem to have a lasting effect on her. Therefore, she was seen, evaluated, and colonoscopy was recommended. Her last colonoscopy was in 2014 with couple of adenomatous polyps found. The patient was discussed about colonoscopy. Risks, benefits, and alternatives were discussed and informed consent was obtained. DESCRIPTION OF PROCEDURE: The patient was taken to the procedure room, placed in left lateral decubitus position. Monitored anesthesia care was induced. Time-out was performed. Began with perianal exam which was significant for a posterior anal fissure that was acute appearing as well as some grade 2 internal hemorrhoids seen on perianal exam. Digital rectal exam was normal. We placed the scope and took it all the way to the cecum. This colonoscopy was challenging due to excessive looping and abdominal pressure was applied and the patient was turned supine to help with passing of the scope. The scope was eventually got into the top of the cecum, but the end of the cecum was not completely entered but was visualized and palpated. It appeared normal. Due to her history of constipation, we elected to do random biopsies. Therefore, biopsies were taken in the cecum and we began examining the colon while withdrawing the ascending colon, hepatic flexure, transverse, descending, sigmoid as well as rectum were all examined. There were no polyps and there were no obvious mucosal abnormalities. Retroflexion was unremarkable in the anorectal area. Biopsies were taken as mentioned above in the cecum, ascending, transverse, descending, sigmoid, and rectum with cold forceps for pathologic analysis. At this point, the scope was withdrawn and the procedure was concluded. The patient will be allowed to return home and come back in 2 weeks for postop check. We will treat for anal fissure and constipation. MMODAL /[id number] [facility]
[2021-06-05 15:23] VITALS: BP 136/82; PULSE 70
== END | disposition home or self-care (01) ==
LOC: JD.SDS 07:37
PROVIDERS: ATTEND Surgery
DX: D72.820 Lymphocytosis (symptomatic) (principal); K60.2 Anal fissure, unspecified; K64.1 Second degree hemorrhoids; K59.00 Constipation, unspecified; E66.01 Morbid (severe) obesity due to excess calories; I25.10 Atherosclerotic heart disease of native coronary artery without angina pectoris; I10 Essential (primary) hypertension; J45.909 Unspecified asthma, uncomplicated; E03.9 Hypothyroidism, unspecified; E78.2 Mixed hyperlipidemia; M81.0 Age-related osteoporosis without current pathological fracture; K21.9 Gastro-esophageal reflux disease without esophagitis; G47.33 Obstructive sleep apnea (adult) (pediatric); Z98.890 Other specified postprocedural states; Z88.8 Allergy status to other drugs, medicaments and biological substances
CPT/HCPCS: 45380; 88305; J2370; J2704; J3010; J7120; 00811; 99100

== ENCOUNTER 2022-07-13 14:22 | Emergency (ER) | payer MEDICARE, BC ==
[2022-07-13 16:20] VITALS: BP 129/72; PULSE 78
== END 2022-07-13 16:21 | disposition home or self-care (01) ==
LOC: JD.ED 14:22
DX: S69.81XA Other specified injuries of right wrist, hand and finger(s), initial encounter (principal); I11.0 Hypertensive heart disease with heart failure; I50.9 Heart failure, unspecified; I25.10 Atherosclerotic heart disease of native coronary artery without angina pectoris; I25.2 Old myocardial infarction; E78.00 Pure hypercholesterolemia, unspecified; K21.9 Gastro-esophageal reflux disease without esophagitis; E03.9 Hypothyroidism, unspecified; E66.9 Obesity, unspecified; Z68.36 Body mass index [BMI] 36.0-36.9, adult; Z88.6 Allergy status to analgesic agent; Z88.8 Allergy status to other drugs, medicaments and biological substances; W23.0XXA Caught, crushed, jammed, or pinched between moving objects, initial encounter
CPT/HCPCS: 99283

== ENCOUNTER 2024-04-29 10:01 | Day surgery (SDC) | payer MEDICARE, BC ==
[~2024-04-29 10:01] MED LIST changes: -Lactated Ringers 1,000 ML IV SCH; -Lidocaine 1%/Sod Bicarbonate in NS 8.4% 1 ML Syringe IDERM PRN; -Propofol 200 MG/20 ML SDV ONE; +Sodium Chloride 0.9% 10 ML Syringe FLUSH SCH; -ePHEDrine 50 MG/ML SDV ONE; -fentaNYL 100 MCG/2 ML SDV ONE
[2024-04-29] MEDS: Lactated Ringers 1,000 ML IV SCH (10:20)
[2024-04-29] MEDS ORDERED: Ondansetron 4 MG/2 ML SDV IVPUSH PRN (10:29)
[2024-04-29] MEDS ORDERED: HYDROmorphone 0.5 MG/0.5 ML Syringe IVPUSH PRN (10:29)
[2024-04-29] MEDS ORDERED: fentaNYL 100 MCG/2 ML SDV IVPUSH PRN (10:29)
[2024-04-29] MEDS ORDERED: Lidocaine 2% 5 ML SDV ONE (11:03)
[2024-04-29] MEDS ORDERED: Propofol 200 MG/20 ML SDV ONE ×3 (11:03→11:44)
[2024-04-29] MEDS ORDERED: ePHEDrine 50 MG/ML SDV ONE (11:28)
[2024-04-29 13:37] VITALS: BP 108/68; PULSE 78
== END 2024-04-29 13:20 | disposition home or self-care (01) ==
LOC: JD.SDS 10:01
PROVIDERS: ATTEND Surgery
DX: Z12.11 Encounter for screening for malignant neoplasm of colon (principal); D12.2 Benign neoplasm of ascending colon; D12.3 Benign neoplasm of transverse colon; K29.50 Unspecified chronic gastritis without bleeding; K31.89 Other diseases of stomach and duodenum; K31.A0 Gastric intestinal metaplasia, unspecified; K52.9 Noninfective gastroenteritis and colitis, unspecified; K21.9 Gastro-esophageal reflux disease without esophagitis; K64.4 Residual hemorrhoidal skin tags; E66.01 Morbid (severe) obesity due to excess calories; I10 Essential (primary) hypertension; E78.2 Mixed hyperlipidemia; E03.9 Hypothyroidism, unspecified; Z20.822 Contact with and (suspected) exposure to COVID-19; Z86.16 Personal history of COVID-19; Z79.2 Long term (current) use of antibiotics; Z79.899 Other long term (current) drug therapy; Z79.890 Hormone replacement therapy; Z79.82 Long term (current) use of aspirin; Z91.040 Latex allergy status; Z88.8 Allergy status to other drugs, medicaments and biological substances; Z68.35 Body mass index [BMI] 35.0-35.9, adult
CPT/HCPCS: 43239; 45380; J2704; J7120; 00813; 88305; 88342; J3490